=== PATIENT | male | born 1955 | race Caucasian/White ===

== ENCOUNTER → 2016-09-30 | Outpatient (CLI) | payer OTHER ==
[2016-09-30 11:07] LABS: CH 34.1; CHCM 34.8; HDW 2.35; HGB 16.3 gm/dL (13.0-17.5); MCH 33.4 pg (25.0-35.0); MCV 98.3 fL (80.0-100.0); Mean Platelet Volume 7.2; RBC 4.89 m/uL (4.30-5.90); RDW 12.6 % (11.5-15.5); WBC 6.3 k/uL (3.8-10.6)
[2016-09-30 11:25] LABS: Bilirubin, Delta 0.1 mg/dL (0.0-0.2); Total Protein 7.5 g/dL (6.3-8.2)
[2016-10-02 15:58] LABS: HCV Qualitative Result DETECTED (Not detected)
== END | disposition home or self-care (01) ==
LOC: LABWHC1 10:13
DX: B18.2 Chronic viral hepatitis C (principal)
CPT/HCPCS: 36415; 80076; 85027; 87522

== ENCOUNTER 2016-11-20 08:23 | Day surgery (SDC) | payer OTHER ==
--- NOTE | 2016-10-26 21:50 | P.GSHP ---
History of Present Illness H&P Date: 10/26/16 Chief Complaint: Screening, history of polyps Patient seen in the office. He has a personal history of colon polyps with his last colonoscopy in 2008 showing 2 separate adenomas in the sigmoid colon. He has no bowel-related complaints at this time. He was seen in the office for evaluation for coloscopy. Denies rectal bleeding or melena. NoFamily history of colon cancer. Medications and Allergies Home Medications Medication Instructions Recorded Confirmed Type Atorvastatin [Lipitor] 20 mg PO HS 09/19/13 09/19/13 History Cetirizine HCl [Zyrtec] 10 mg PO DAILY 09/19/13 09/20/13 History Multivitamin/Iron/Folic Acid 1 each PO DAILY 09/19/13 09/20/13 History [Centrum Complete Multivit Tab] Valsartan [Diovan] 160 mg PO DAILY 09/19/13 09/20/13 History Allergies Allergy/AdvReac Type Severity Reaction Status Date / Time codeine AdvReac Nausea & Verified 09/19/13 10:02 Vomiting Surgical - Exam Physical exam: General: Well-developed, well-nourished HEENT: Normocephalic, sclerae nonicteric Abdomen: Nontender, nondistended Extremities: No edema Neuro: Alert and oriented Assessment and Plan (1) Colon cancer screening Narrative/Plan: We'll proceed with colonoscopy on 11/20. Risks of bleeding and perforation reviewed. Status: Acute
[2016-11-18 11:16] VITALS: BMI 24.8
[~2016-11-20 08:23] MED LIST: LACTATED RINGERS 1,000 ML IV SCH
[2016-11-20 08:40] VITALS: TEMP 97.7
[2016-11-20] MEDS ORDERED: LIDOCAINE 1% 20 ML VIAL (10MG/ML) FOR IV START INTRADERMA ONE (08:52)
[2016-11-20] MEDS ORDERED: PROPOFOL 10 MG/ML 20 ML VIAL IV ONE (09:32)
--- NOTE | 2016-11-20 10:05 | P.PCN ---
Date of Procedure: 11/20/16 Preoperative Diagnosis: Postoperative Diagnosis: Procedure(s) Performed: PREOPERATIVE DIAGNOSIS: History of colon polyps, screening POSTOPERATIVE DIAGNOSIS: Multiple colon polyps PROCEDURE: Colonoscopy with snare polypectomy ANESTHESIA: MAC SURGEON: Issa Parr M.D. SPECIMENS: Polyps ENDOSCOPIC PROCEDURE: The patient was placed on the endoscopy table in the left decubitus position. The Olympus colonoscope was inserted into the anus and passed under direct visualization to the base of the cecum. The appendiceal orifice was visualized. From that point the scope was slowly withdrawn inspecting all surfaces carefully. There were no neoplastic inflammatory or polypoid lesions throughout the cecum and ascending colon. At the hepatic flexure a small polyp was identified and removed using a snare with cautery technique. In the distal transverse colon an additional small lesion was removed in a similar fashion. In the distal descending colon at 55 cm there was a more proximal polyp measuring about 1 cm in size. A snare with cautery technique. In the sigmoid colon 2 small polyps were both removed using the snare technique. The remainder of the sigmoid and rectum appeared normal. There was some fairly impressive tortuosity throughout the sigmoid colon. No visible diverticulosis was seen. Digital rectal examination was normal. The patient was taken to the recovery room in stable condition per anesthesia guidelines. RECOMMENDATIONS: Await biopsies results. Recommend follow-up colonoscopy 3-5 years. Implants: Indications for Procedure: Operative Findings: Description of Procedure:
[2016-11-20 10:27] VITALS: BP 133/89; PULSE 73; RESP 18
== END 2016-11-20 10:44 | disposition home or self-care (01) ==
LOC: ORWHC2ENDO 08:23
PROVIDERS: ATTEND Surgery
DX: Z12.11 Encounter for screening for malignant neoplasm of colon (principal); Z86.010 Personal history of colon polyps; D12.4 Benign neoplasm of descending colon; D12.3 Benign neoplasm of transverse colon; D12.5 Benign neoplasm of sigmoid colon; I10 Essential (primary) hypertension; E78.5 Hyperlipidemia, unspecified; K21.9 Gastro-esophageal reflux disease without esophagitis; B19.20 Unspecified viral hepatitis C without hepatic coma; Z79.899 Other long term (current) drug therapy; Z88.5 Allergy status to narcotic agent
CPT/HCPCS: 88305; 45385; J2704

== ENCOUNTER → 2016-12-21 | Outpatient (CLI) | payer OTHER ==
[2016-12-21 09:10] LABS: Basophils # (A) 0.1 k/uL (0-0.2); Basophils % (A) 1 %; CHCM 34.9; Eosinophils # (A) 0.3 k/uL (0-0.7); Eosinophils % (A) 4 %; HCT 47.4 % (39.0-53.0); HDW 2.35; HGB 15.9 gm/dL (13.0-17.5); Luc # (Auto) 0.25; Luc % (Auto) 3; Lymphocytes # (A) 2.8 k/uL (1.0-4.8); Lymphocytes % (A) 34 %; MCH 32.9 pg (25.0-35.0); MCHC 33.6 g/dL (31.0-37.0); MCV 97.9 fL (80.0-100.0); Mean Platelet Volume 7.5; Monocytes # (A) 0.6 k/uL (0-1.0); Monocytes % (A) 7 %; Neutrophils # (A) 4.4 k/uL (1.3-7.7); Neutrophils % (A) 52 %; RBC 4.84 m/uL (4.30-5.90); RDW 12.9 % (11.5-15.5); WBC 8.5 k/uL (3.8-10.6); WBC (Perox) 8.42
[2016-12-21 09:22] LABS: Bilirubin, Delta 0.2 mg/dL (0.0-0.2); Total Bilirubin 0.7 mg/dL (0.2-1.3); Total Protein 7.5 g/dL (6.3-8.2)
[2016-12-23 15:55] LABS: Hepatits C Virus RNA, Quant <12 IU/mL (<12); LOG HCV IU/mL <1.08 (<1.08)
== END | disposition home or self-care (01) ==
LOC: LABWHC1 08:20
PROVIDERS: ATTEND Physician Assistant
DX: B18.2 Chronic viral hepatitis C (principal)
CPT/HCPCS: 36415; 80076; 85025; 87522

== ENCOUNTER → 2017-04-27 | Outpatient (CLI) | payer OTHER ==
[2017-04-27 09:09] LABS: Albumin 4.7 g/dL (3.5-5.0); Bilirubin, Delta 0.2 mg/dL (0.0-0.2); Bilirubin,Unconjugated 0.4 mg/dL (0.0-1.1); Total Bilirubin 0.6 mg/dL (0.2-1.3); Total Protein 7.7 g/dL (6.3-8.2)
[2017-04-27 09:12] LABS: Basophils # (A) 0.1 k/uL (0-0.2); Basophils % (A) 1 %; Eosinophils # (A) 0.3 k/uL (0-0.7); Eosinophils % (A) 4 %; HCT 48.1 % (39.0-53.0); HGB 15.6 gm/dL (13.0-17.5); Lymphocytes % (A) 34 %; MCH 31.9 pg (25.0-35.0); MCHC 32.4 g/dL (31.0-37.0); MCV 98.3 fL (80.0-100.0); Monocytes # (A) 0.5 k/uL (0-1.0); Monocytes % (A) 6 %; Neutrophils # (A) 4.6 k/uL (1.3-7.7); Neutrophils % (A) 53 %; Platelet Count 162 k/uL (150-450); RBC 4.89 m/uL (4.30-5.90); RDW 12.9 % (11.5-15.5); WBC 8.8 k/uL (3.8-10.6)
[2017-04-28 16:27] LABS: Hepatits C Virus RNA Not detected (Not detected); Hepatits C Virus RNA, Quant <12 IU/mL (<12); LOG HCV IU/mL <1.08 (<1.08)
== END | disposition home or self-care (01) ==
LOC: LABWHC1 08:08
PROVIDERS: ATTEND Physician Assistant
DX: B18.2 Chronic viral hepatitis C (principal)
CPT/HCPCS: 36415; 80076; 82105; 85025; 87522

== ENCOUNTER → 2017-10-26 | Outpatient (CLI) | payer OTHER ==
[2017-10-26 09:00] LABS: Basophils % (A) 1 %; Eosinophils # (A) 0.3 k/uL (0-0.7); Eosinophils % (A) 5 %; HCT 47.7 % (39.0-53.0); HGB 15.8 gm/dL (13.0-17.5); Lymphocytes # (A) 1.9 k/uL (1.0-4.8); Lymphocytes % (A) 31 %; MCH 32.3 pg (25.0-35.0); MCHC 33.2 g/dL (31.0-37.0); MCV 97.1 fL (80.0-100.0); Mean Platelet Volume 7.1; Monocytes # (A) 0.5 k/uL (0-1.0); Monocytes % (A) 8 %; Neutrophils # (A) 3.3 k/uL (1.3-7.7); Neutrophils % (A) 53 %; Platelet Count 179 k/uL (150-450); RBC 4.91 m/uL (4.30-5.90); RDW 12.4 % (11.5-15.5); WBC 6.3 k/uL (3.8-10.6)
[2017-10-26 09:06] LABS: Albumin 4.6 g/dL (3.5-5.0); Bilirubin, Delta 0.4 mg/dL (0.0-0.2); Bilirubin,Unconjugated 0.7 mg/dL (0.0-1.1); Total Bilirubin 1.1 mg/dL (0.2-1.3); Total Protein 7.5 g/dL (6.3-8.2)
[2017-10-27 15:47] LABS: Hepatits C Virus RNA Not detected (Not detected); Hepatits C Virus RNA, Quant <12 IU/mL (<12); LOG HCV IU/mL <1.08 (<1.08)
== END | disposition home or self-care (01) ==
LOC: LABWHC1 07:51
PROVIDERS: ATTEND Physician Assistant
DX: B18.2 Chronic viral hepatitis C (principal)
CPT/HCPCS: 36415; 80076; 85025; 87522

== ENCOUNTER → 2018-12-02 | Outpatient (CLI) | payer OTHER ==
[2018-12-02 10:08] LABS: Basophils % (A) 1 %; Eosinophils # (A) 0.2 k/uL (0-0.7); Eosinophils % (A) 3 %; HCT 45.6 % (39.0-53.0); HGB 15.3 gm/dL (13.0-17.5); Lymphocytes # (A) 2.2 k/uL (1.0-4.8); Lymphocytes % (A) 31 %; MCH 32.7 pg (25.0-35.0); MCHC 33.5 g/dL (31.0-37.0); MCV 97.4 fL (80.0-100.0); Monocytes # (A) 0.5 k/uL (0-1.0); Monocytes % (A) 7 %; Neutrophils # (A) 3.9 k/uL (1.3-7.7); Neutrophils % (A) 55 %; Platelet Count 187 k/uL (150-450); RBC 4.68 m/uL (4.30-5.90); RDW 12.4 % (11.5-15.5)
[2018-12-02 16:38] LABS: Albumin 4.8 g/dL (3.80-4.90); Albumin/Globulin Ratio 2.29 (1.60-3.17); Bilirubin, Conjugated 0.2 mg/dL (0.20-0.40); Bilirubin,Unconjugated 0.4 mg/dL; Globulin 2.1 g/dL (1.6-3.3); Total Bilirubin 0.6 mg/dL (0.3-1.2); Total Protein 6.9 g/dL (6.2-8.2)
[2018-12-06 08:07] LABS: LOG HCV IU/mL <1.08 (<1.08)
== END | disposition home or self-care (01) ==
LOC: LABWHC1 09:21
PROVIDERS: ATTEND Physician Assistant
DX: B18.2 Chronic viral hepatitis C (principal)
CPT/HCPCS: 36415; 80076; 85025; 87522